=== PATIENT | female | born 1990 ===

== ENCOUNTER 2021-02-28 01:05 | Emergency (ER) | payer SELFPAY ==
[2021-02-28 02:24] LABS: Absolute Lymphocytes (CBC) 3.8 K/uL (0.7-4.9); Basophils % 0.7 % (0-1.3); Hematocrit 37.4 % (36.0-45.0); Lymphocytes % 38.6 % (15.3-44.8); MPV 8.1 fL (7.6-11.3); RBC Red Blood Cell Count 4.32 M/uL (3.86-4.86)
[2021-02-28] MEDS ORDERED: NA CHLORIDE 0.9% 1,000 ML ONE (02:44)
[2021-02-28 03:38] LABS: ALT/SGPT 37 U/L (12-78); AST/SGOT 18 U/L (15-37); Albumin 3.3 g/dL (3.4-5.0); Alkaline Phosphatase 49 U/L (45-117); BUN Blood Urea Nitrogen 14 mg/dL (7-18); Bicarbonate 22 mmol/L (21-32); Bilirubin Direct < 0.1 mg/dL (0-0.2); Bilirubin Total 0.1 mg/dL (0.2-1.0); Glucose Level 100 mg/dL (74-106); Lipase 94 U/L (73-393); Potassium 3.2 mmol/L (3.5-5.1); Protein, Total 6.4 g/dL (6.4-8.2); Sodium Level 144 mmol/L (136-145)
[2021-02-28 05:20] LABS: Urine Blood Negative (Negative); Urine Glucose Negative (Negative); Urine Protein Negative (Negative); Urine Specific Gravity >=1.030 (1.005-1.030); Urine pH 5.5 (5.0-7.0)
[2021-02-28 05:22] LABS: Urine Specific Gravity/Preg >1.030 (1.005-1.030)
--- NOTE | 2021-02-28 06:22 | ER ---
Nurse's Notes [facility] Name: Terese Decker Age: 30 yrs Sex: Female : 1990 Arrival Date: 02/28/2021 Time: 01:08 Bed 14 Private MD: Diagnosis: Lower abdominal pain, unspecified;Hematochezia Presentation: 02/28 01:23 Acuity: ISACC 3 lp1 01:27 Chief complaint: Patient states: X3 episodes of blood in stool today; reports lower lp1 abdominal cramping; blood in stool is bright red per patient. Coronavirus screen: At this time, the client does not indicate any symptoms associated with coronavirus-19. Ebola Screen: No symptoms or risks identified at this time. Initial Sepsis Screen: Does the patient meet any 2 criteria? No. Patient's initial sepsis screen is negative. Does the patient have a suspected source of infection? No. Patient's initial sepsis screen is negative. Risk Assessment: Do you want to hurt yourself or someone else? Patient reports no desire to harm self or others. Onset of symptoms was February 28, 2021. 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 - Social history:: Smoking status: Patient denies any tobacco usage or history of. Screenin:29 Abuse screen: Denies threats or abuse. Denies injuries from another. Nutritional lp1 screening: No deficits noted. Tuberculosis screening: No symptoms or risk factors identified. Fall Risk None identified. Assessment: 02:24 General: Appears in no apparent distress. obese, Behavior is cooperative, appropriate kc4 for age, anxious, Denies fever, fatigue, chills. Pain: Complains of pain in pelvic region pain Pain currently is 4 out of 10 on a pain scale. at worst was 8 out of 10 on a pain scale. level that patient reports is acceptable is 2 out of 10 on a pain scale. Quality of pain is described as dull, stabbing, Pain began 4 hours ago. Is episodic. Neuro: No deficits noted. Cardiovascular: No deficits noted. Respiratory: No deficits noted. GI: Abdomen is round distended, obese, Rectal exam: Bleeding noted, Stools are reported to be normal. Last BM was February 27, 2021. Last meal was February 27, 2021. at 16:00. Bowel sounds present X 4 quads. Abd is soft and non tender X 4 quads. Reports lower abdominal pain, rectal bleeding, bloody stool, Patient currently denies constipation, diarrhea, epigastric pain, flatulence, gaseousness, hemorrhoids, incontinence, indigestion, nausea, vomiting. 02:24 : No deficits noted. No signs and/or symptoms were reported regarding the kc4 genitourinary system. EENT: No deficits noted. No signs and/or symptoms were reported regarding the EENT system. Derm: No deficits noted. No signs and/or symptoms reported regarding the dermatologic system. Musculoskeletal: No deficits noted. No signs and/or symptoms reported regarding the musculoskeletal system. Vital Signs: 01:27 BP 124 / 86; Pulse 85; Resp 18; Temp 97.9(TE); Pulse Ox 100% on R/A; Weight 99.79 kg lp1 (R); Height 5 ft. 3 in. (160.02 cm); Pain 7/10; 02:28 BP 107 / 71; Pulse 80; Resp 16; Temp 98.0(O); Pulse Ox 100% on R/A; Pain 0/10; kc4 04:30 BP 112 / 58; Pulse 72; Resp 16; Temp 98.7; Pulse Ox 99% on R/A; kc4 05:30 BP 108 / 57; Pulse 74; Resp 18; Temp 98.0; Pulse Ox 99% on R/A; Pain 0/10; kc4 06:30 BP 108 / 60; Pulse 78; Resp 18; Temp 98.8(O); kc4 01:27 Body Mass Index 38.97 (99.79 kg, 160.02 cm) lp1 ED Course: 01:08 Patient arrived in ED. bp1 01:23 Triage completed. lp1 01:24 Herman Henderson MD is Attending Physician. mh7 01:29 Arm band placed on. lp1 02:14 Felisha Umanzor is Primary Nurse. kc4 02:15 Inserted saline lock: 20 gauge in left hand, using aseptic technique. kc4 02:16 Type And Screen Sent. kc4 02:16 Liver (Hepatic) Function Sent. kc4 02:16 CBC with Automated Diff Sent. kc4 02:16 Basic Metabolic Panel Sent. kc4 02:16 Protime (+inr) Sent. kc4 02:16 Ptt, Activated Sent. kc4 02:16 Basic Metabolic Panel Sent. kc4 02:16 CBC with Diff Sent. kc4 02:16 Hepatic Function Sent. kc4 02:16 Lipase Sent. kc4 02:29 Patient has correct armband on for positive identification. Placed in gown. Bed in low kc4 position. Call light in reach. Side rails up X 1. Adult w/ patient. 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 kc4 03:26 CT Abd/Pelvis - Without Contrast In Process Unspecified. EDMS 05:22 Urine --Ancillary (enter results) Sent. kc4 05:22 Urine --Ancillary Sent. kc4 05:23 Urine Dipstick-Ancillary Sent. kc4 06:20 Rj Paniagua MD is Referral Physician. 7 06:54 IV discontinued, intact, bleeding controlled, No redness/swelling at site. Pressure kc4 dressing applied. Administered Medications: 02:31 Drug: NS 0.9% 1000 ml Route: IV; Rate: 1000 ml; Site: left hand; kc4 05:08 Follow up: Response: No adverse reaction; IV Status: Completed infusion kc4 Outcome: 06:21 Discharge ordered by . 7 06:53 Discharged to home ambulatory. kc4 06:53 Condition: stable 06:53 Discharge instructions given to patient, Instructed on discharge instructions, follow up and referral plans. Demonstrated understanding of instructions, follow-up care, medications, Prescriptions given X 2. 06:55 Patient left the ED. kc4 Signatures: Dispatcher [employer] Amairani Livingston, SOFIA RN lp1 Karon Che Maurice, MD MD [facility] Felisha Umanzor kc4
--- NOTE | 2021-02-28 06:22 | EDPHYS ---
Physician Documentation [facility] Name: Terese Decker Age: 30 yrs Sex: Female : 1990 Arrival Date: 02/28/2021 Time: 01:08 Bed 14 Private MD: ED Physician Herman Henderson HPI: 02/28 01:45 This 30 yrs old Female presents to ER via Ambulatory with complaints of Bloody Stools, mh7 Abdominal Pain. 01:45 The patient presents with abdominal pain in the lower abdomen. Onset: The mh7 symptoms/episode began/occurred yesterday. The symptoms do not radiate. Associated signs and symptoms: Pertinent positives: blood in stools, diarrhea, Pertinent negatives: nausea and vomiting, anorexia, chest pain, constipation, dysuria, fever, headache, hematuria, nausea, palpitations, shortness of breath, vaginal discharge, vomiting, vomiting blood. The symptoms are described as intermittent, vague, waxing/waning. Modifying factors: The symptoms are alleviated by nothing, the symptoms are aggravated by nothing. Severity of pain: At its worst the pain was moderate yesterday, in the emergency department the pain has improved moderately. Patient reports having lower abdominal pain with cramping and blood in stool x 3 episodes starting yesterday.. 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 - Social history:: Smoking status: Patient denies any tobacco usage or history of. ROS: 01:45 Constitutional: Negative for fever, chills, and weight loss, Eyes: Negative for injury, mh7 pain, redness, and discharge, ENT: Negative for injury, pain, and discharge, Neck: Negative for injury, pain, and swelling, Cardiovascular: Negative for chest pain, palpitations, and edema, Respiratory: Negative for shortness of breath, cough, wheezing, and pleuritic chest pain, Back: Negative for injury and pain, : Negative for injury, bleeding, discharge, and swelling, MS/Extremity: Negative for injury and deformity, Skin: Negative for injury, rash, and discoloration, Neuro: Negative for headache, weakness, numbness, tingling, and seizure, Psych: Negative for depression, anxiety, suicide ideation, homicidal ideation, and hallucinations, Allergy/Immunology: Negative for hives, rash, and allergies, Endocrine: Negative for neck swelling, polydipsia, polyuria, polyphagia, and marked weight changes, Hematologic/Lymphatic: Negative for swollen nodes, abnormal bleeding, and unusual bruising. Exam: 01:45 Constitutional: This is a well developed, well nourished patient who is awake, alert, mh7 and in no acute distress. Head/Face: Normocephalic, atraumatic. Eyes: Pupils equal round and reactive to light, extra-ocular motions intact. Lids and lashes normal. Conjunctiva and sclera are non-icteric and not injected. Cornea within normal limits. Periorbital areas with no swelling, redness, or edema. Neck: Trachea midline, no thyromegaly or masses palpated, and no cervical lymphadenopathy. Supple, full range of motion without nuchal rigidity, or vertebral point tenderness. No Meningismus. Chest/axilla: Normal chest wall appearance and motion. Nontender with no deformity. No lesions are appreciated. Cardiovascular: Regular rate and rhythm with a normal S1 and S2. No gallops, murmurs, or rubs. Normal PMI, no JVD. No pulse deficits. Respiratory: Lungs have equal breath sounds bilaterally, clear to auscultation and percussion. No rales, rhonchi or wheezes noted. No increased work of breathing, no retractions or nasal flaring. Back: No spinal tenderness. No costovertebral tenderness. Full range of motion. Skin: Warm, dry with normal turgor. Normal color with no rashes, no lesions, and no evidence of cellulitis. MS/ Extremity: Pulses equal, no cyanosis. Neurovascular intact. Full, normal range of motion. Neuro: Awake and alert, GCS 15, oriented to person, place, time, and situation. Cranial nerves II-XII grossly intact. Motor strength 5/5 in all extremities. Sensory grossly intact. Cerebellar exam normal. Normal gait. Psych: Awake, alert, with orientation to person, place and time. Behavior, mood, and affect are within normal limits. 01:45 Abdomen/GI: Inspection: obese Bowel sounds: normal, in all quadrants, Palpation: mild 7 abdominal tenderness, in the right lower quadrant and left lower quadrant, mass, is not appreciated, rebound tenderness, is not appreciated, voluntary guarding, is not appreciated, involuntary guarding, is not appreciated, no appreciated organomegaly, Rectal exam: rectal tone normal, Stool: brown, guaiac negative, hemorrhoid(s), are not appreciated, mass, is not appreciated, swelling, is not appreciated, tenderness, is not appreciated, the exam is chaperoned by the nurse, Indicators: McBurney's point is not tender, Robert's sign is negative, Rovsing's sign is negative, Obturator sign is negative, Psoas sign is negative, Liver: no appreciated palpable abnormalities, Hernia: not appreciated. Vital Signs: 01:27 BP 124 / 86; Pulse 85; Resp 18; Temp 97.9(TE); Pulse Ox 100% on R/A; Weight 99.79 kg lp1 (R); Height 5 ft. 3 in. (160.02 cm); Pain 7/10; 02:28 BP 107 / 71; Pulse 80; Resp 16; Temp 98.0(O); Pulse Ox 100% on R/A; Pain 0/10; kc4 04:30 BP 112 / 58; Pulse 72; Resp 16; Temp 98.7; Pulse Ox 99% on R/A; kc4 05:30 BP 108 / 57; Pulse 74; Resp 18; Temp 98.0; Pulse Ox 99% on R/A; Pain 0/10; kc4 06:30 BP 108 / 60; Pulse 78; Resp 18; Temp 98.8(O); kc4 01:27 Body Mass Index 38.97 (99.79 kg, 160.02 cm) lp1 MDM: 01:45 Data reviewed: vital signs, nurses notes, lab test result(s), CBC, electrolytes, mh7 urinalysis, radiologic studies, CT scan. Data interpreted: Pulse oximetry: on room air is 100 %. Interpretation: normal. Counseling: I had a detailed discussion with the patient and/or guardian regarding: the historical points, exam findings, and any diagnostic results supporting the discharge/admit diagnosis, lab results, radiology results, the need for outpatient follow up, a bobbin doffer. Response to treatment: the patient's symptoms have resolved after treatment, the patient's blood pressure is in an acceptable range, mental status has returned to baseline, the patient no longer shows bradycardia, the patient is not short of breath, the patient is not tachycardic, the patient's pain is gone, the patient's temperature has normalized, patient is well hydrated. 06:17 Differential diagnosis: bowel obstruction, diverticulitis, GI Bleed, non-specific abd [facility] pain, Pyelonephritis, Ureterolithiasis, urinary tract infection. 06:21 Patient medically screened. [facility] 02/28 01:43 Order name: Basic Metabolic Panel [facility] 02/28 01:43 Order name: CBC with Diff [facility] 02/28 01:43 Order name: Hepatic Function [facility] 02/28 01:43 Order name: Lipase; Complete Time: 05:07 [facility] 02/28 01:43 Order name: Protime (+inr); Complete Time: 03:24 [facility] 02/28 01:43 Order name: Ptt, Activated; Complete Time: 03:24 [facility] 02/28 01:43 Order name: Basic Metabolic Panel; Complete Time: 05:07 [facility] 02/28 01:43 Order name: CBC with Automated Diff; Complete Time: 02:46 [facility] 02/28 01:43 Order name: Liver (Hepatic) Function; Complete Time: 05:07 [facility] 02/28 01:44 Order name: Type And Screen; Complete Time: 03:24 [facility] 02/28 05:20 Order name: Urine Dipstick-Ancillary [facility] 02/28 05:20 Order name: Urine --Ancillary (enter results) [facility] 02/28 05:21 Order name: Urine --Ancillary; Complete Time: 05:57 [facility] 02/28 06:43 Order name: ABO/RH no charge [facility] 02/28 01:43 Order name: IV Saline Lock; Complete Time: 02:16 [facility] 02/28 01:43 Order name: Labs collected and sent; Complete Time: 02:16 [facility] 02/28 01:43 Order name: Urine Dipstick-Ancillary (obtain specimen); Complete Time: 05:22 [facility] 02/28 01:43 Order name: Urine Test (obtain specimen); Complete Time: 05:22 [facility] 02/28 02:58 Order name: CT Abd/Pelvis - Without Contrast [facility] Administered Medications: 02:31 Drug: NS 0.9% 1000 ml Route: IV; Rate: 1000 ml; Site: left hand; 4 05:08 Follow up: Response: No adverse reaction; IV Status: Completed infusion kc4 Disposition Summary: 02/28/21 06:21 Discharge Ordered Location: Home [facility] Problem: new [facility] Symptoms: have improved [facility] Condition: Stable [facility] Diagnosis - Lower abdominal pain, unspecified [facility] - Hematochezia [facility] Followup: [facility] - With: Private Physician - When: 1 - 2 days - Reason: Worsening of condition, Recheck today's complaints, Continuance of care, Re-evaluation by your physician Followup: [facility] - With: Rj Paniagua MD - When: 1 - 2 days - Reason: Worsening of condition, Recheck today's complaints Discharge Instructions: - Discharge Summary Sheet [facility] - Abdominal Pain, Adult, [id number] [facility] - Bloody Diarrhea [facility] Forms: - Medication Reconciliation Form [facility] - Thank You Letter [facility] - Antibiotic Education [facility] - Prescription Opioid Use [facility] Prescriptions: - Cipro 500 mg Oral Tablet - take 1 tablet by ORAL route every 12 hours for 5 days; 10 tablet; Refills: 0, [facility] Product Selection Permitted - dicyclomine 20 mg Oral Tablet - take 1 tablet by ORAL route 4 times per day As needed; 20 tablet; Refills: 0, [facility] Product Selection Permitted Signatures: Dispatcher [employer] Amairani Livingston RN RN lp1 Abdulkadir Mckeon, CABLE SPOOLER-C CABLE SPOOLER-Cla1 Herman Henderson MD MD [facility] Felisha Umanzor 4
[2021-02-28 07:03] VITALS: O2SAT 99
[2021-02-28 07:06] VITALS: BP 108/60; TEMP 98.8
--- NOTE | 2021-03-01 11:43 | RAD REPORT ---
EXAM DESCRIPTION: CT - Abdomen Pelvis Wo Contrast - 02/28/2021 6:05 am COMPARISON: None. CLINICAL HISTORY: [facility] MAIN Bloody Stools;Abd pain TECHNIQUE: CT of the abdomen and pelvis was acquired without IV contrast material. Coronal and sag ittal reconstructions were obtained. Automated exposure control was utilized on this examination as a dose lowering technique. FINDINGS: Lung bases: Clear. *Evaluation of solid organs is limited due to lack of IV contrast. Liver: Normal. Gallbladder and biliary: Decompressed gallbladder. Unremarkable biliary tree. Pancreas: Normal. Spleen: Normal. Adrenal glands: Normal adrenal glands. Kidneys: Normal kidneys Stomach and Small Bowel: The stomach and small bowel are normal. Urinary bladder: Normal. Uterus and Adnexa: Normal. Colon and Appendix: The colon is unremarkable. No evidence of appendicitis. Retroperitoneum and lymph nodes: Normal. Vascular: Unremarkable. Peritoneal cavity: No ascites or free air. Musculoskeletal and soft tissues: Soft tissues are unremarkable. No aggressive bone lesions. No com pression fracture. IMPRESSION: No acute intra-abdominal abnormality. Electronically signed by: John Garrett MD 02/28/2021 3:49 AM CDT Due to temporary technical issues with the PACS/Fluency reporting system, reports are being signed by the in house radiologist without review as a courtesy to ensure prompt reporting. The interpreting r adiologist is fully responsible for the content of the report.
== END 2021-02-28 06:55 | disposition home or self-care (01) ==
LOC: ER 01:05
DX: R10.30 Lower abdominal pain, unspecified (principal); K92.1 Melena; Z88.6 Allergy status to analgesic agent; Z91.09 Other allergy status, other than to drugs and biological substances
CPT/HCPCS: 36415; 74176; 80048; 80076; 81003; 81025; 83690; 85025; 85610; 85730; 86850; 86900; 86901; 96360; 96361; 99284; J7030